=== PATIENT | female | born 1990 | race African-American/Black ===

== ENCOUNTER 2020-09-26 20:35 | Emergency (ER) | payer BC ==
[~2020-09-26] VITALS: Ht 154.9 cm; Wt 69.4 kg
[2020-09-26 20:35] VITALS: BP 132/87
[2020-09-26] MEDS ORDERED: KETOROLAC 60 MG/2 ML VIAL IM ONE (20:55)
[2020-09-26] MEDS ORDERED: LORazepam 2 MG/ML VIAL ONE (22:23)
[2020-09-27 02:04] VITALS: BP 124/74
== END 2020-09-27 02:04 | disposition home or self-care (01) ==
LOC: MED 20:35
DX: R07.89 Other chest pain (principal); M25.571 Pain in right ankle and joints of right foot; Z88.5 Allergy status to narcotic agent; Z88.8 Allergy status to other drugs, medicaments and biological substances
CPT/HCPCS: 71101; 73610; 96372; 99284; J1885; J2060